=== PATIENT | male | born 1950 | race Caucasian/White ===

== ENCOUNTER 2019-05-20 15:56 | Emergency (ER) | payer OTHER ==
[~2019-05-20] VITALS: Ht 175.3 cm; Wt 81.7 kg
[2019-05-20] MEDS ORDERED: AUGMENTIN 875-1 EACH PO (18:21)
== END 2019-05-20 18:31 | disposition home or self-care (01) ==
LOC: ED 15:56
DX: J32.9 Chronic sinusitis, unspecified (principal); Z88.8 Allergy status to other drugs, medicaments and biological substances
CPT/HCPCS: 70486; 80053; 85025; 96365; 96375; 99283-25; J0295; J1885